=== PATIENT | male | born 1990 | race African-American/Black ===

== ENCOUNTER 2024-08-08 11:31 | Emergency (ER) | payer SELFPAY | END 2024-08-08 12:29 | disposition home or self-care (01) | LOC: JD.ED 11:31 | DX: J06.9 Acute upper respiratory infection, unspecified (principal); B97.89 Other viral agents as the cause of diseases classified elsewhere; Z79.899 Other long term (current) drug therapy | CPT/HCPCS: 99283 ==

== ENCOUNTER 2024-10-09 16:29 | Emergency (ER) | payer SELFPAY ==
[2024-10-09 17:09] LABS: BASOPHILS PERCENT AUTO 0.1 % (0.0-1.0); HEMATOCRIT 37.3 % (42.0-52.0); HEMOGLOBIN 12.6 gm/dl (14.0-18.0); IMMATURE GRAN ABSOLUTE AUTO 0.02 K/mm3 (0.00-0.05); IMMATURE GRAN PERCENT AUTO 0.3 % (0.0-0.4); LYMPHOCYTES ABSOLUTE AUTO 1.5 K/mm3 (1.0-4.8); LYMPHOCYTES PERCENT AUTO 19.5 % (24.0-44.0); MEAN CORPUSCULAR HEMOGLOBIN 27.6 pg (28.0-32.0); MEAN CORPUSCULAR HGB CONC 33.8 g/dl (32.0-36.0); MEAN CORPUSCULAR VOLUME 81.8 fl (83.0-99.0); MEAN PLATELET VOLUME 10.9 fl (9.4-12.4); MONOCYTES PERCENT AUTO 12.8 % (0.0-8.0); NEUTROPHILS PERCENT AUTO 67.3 % (41.0-71.0); PLATELET COUNT,PLT 174 K/mm3 (150-400); RED BLOOD CELL COUNT 4.56 M/mm3 (4.52-5.90); WHITE BLOOD CELL COUNT,WBC 7.42 K/mm3 (3.9-11.3)
[2024-10-09 17:39] LABS: A/G RATIO 0.5 (1-2); ANION GAP 14.3 (5-15); BILIRUBIN TOTAL 0.6 mg/dL (0.2-1.0); BUN/CREATININE RATIO 8.2 (14-18); C-REACTIVE PROTEIN 8.35 mg/dL (<0.30); CALCIUM 8.4 mg/dL (8.5-10.1); CREATININE 1.1 mg/dL (0.7-1.3); EST CRCL DRUG DOSING (CG) 89.82 mL/min; POTASSIUM,K 3.3 mEq/L (3.5-5.1); PROTEIN TOTAL,TP 9.6 g/dl (6.4-8.2)
[2024-10-09] MEDS: Ketorolac 30 MG/ML SDV IVPUSH ONE (17:40)
[2024-10-09] MEDS: Sodium Chloride 0.9% 1,000 ML IV SCH (17:41)
[2024-10-09 17:42] LABS: LACTIC ACID 0.8 mmol/L (0.4-2.0)
[2024-10-09] MEDS: Sodium Chloride 0.9% 10 ML Syringe FLUSH PRN (17:42)
[2024-10-09] MEDS: cefTRIAXone 2 GM in Sodium Chloride 0.9% 100 ML IV ONE (18:30)
[2024-10-09] MEDS: Acetaminophen 325 MG Tab PO ONE (18:42)
[2024-10-09] MEDS: Azithromycin 250 MG Tab ONE (19:25)
[2024-10-09] MEDS: Azithromycin 250 MG Tab PO ONE (19:25)
== END 2024-10-09 19:00 | disposition home or self-care (01) ==
LOC: JD.ED 16:29 → MERGE 16:29 → JD.ED 19:00
DX: J98.8 Other specified respiratory disorders (principal); Z79.899 Other long term (current) drug therapy
CPT/HCPCS: 36415; 71046; 80053; 83605; 85025; 86140; 86308; 87428; 96361; 96365; 96375; 99285; A9270; J0696; J1885; J7030; 93010; 99284

== ENCOUNTER 2025-01-19 09:56 | Emergency (ER) | payer SELFPAY ==
[2025-01-19] MEDS: LORazepam 2 MG/ML SDV IVPUSH ONE (11:40)
== END 2025-01-19 13:23 | disposition home or self-care (01) ==
LOC: MERGE 09:56 → JD.ED 09:56
DX: R13.10 Dysphagia, unspecified (principal); J39.2 Other diseases of pharynx
CPT/HCPCS: 96374; 96375; 99283; J1610; J2060; J7512